=== PATIENT | female | born 1985 | race Caucasian/White ===

== ENCOUNTER 2018-05-25 13:00 | Emergency (ER) | payer MEDICAID ==
[~2018-05-25] VITALS: Wt 69.2 kg
[2018-05-25] MEDS ORDERED: ACET500C5 PO (15:57)
--- NOTE | 2018-05-26 14:59 | ERD ---
ER Documentation Chief Complaint Chief Complaint 9 WEEKS WITH ABDOMINAL PAIN W/ N/V X 2 DAYS HPI 32-year-old female patient with no significant past medical history presents to ED complaining of abdominal pain, nausea, vomiting that started 2 days ago. Patient currently is . Patient is a . Reports that her last menstruation is on March 31, 2018. Denies any vaginal bleeding, vaginal discharge, dysuria, urgency, frequency, chest pain, shortness of breath, cough, rhinorrhea. ROS All systems reviewed and are negative except as per history of present illness. Medications Home Meds Active Scripts Acetaminophen* (Tylophen*) 500 Mg Capsule, 1 CAP PO Q6H PRN for PAIN AND OR ELEVATED TEMP, #20 CAP Prov:JAYDA ANDRADE PA-C 05/25/18 PMhx/Soc Medical and Surgical Hx: pt denies Medical Hx, pt denies Surgical Hx Hx Alcohol Use: No Hx Substance Use: No Hx Tobacco Use: No Physical Exam Vitals Vital Signs Date Temp Pulse Resp B/P (MAP) Pulse Ox O2 O2 Flow FiO2 Time Delivery Rate 05/25/18 97.7 69 18 124/74 99 13:09 (91) Physical Exam Const: Ker-tob-qnbvzptcc, well-nourished. In no acute distress. Head: Atraumatic, normocephalic Eyes: Normal Conjunctiva without injection. No purulent discharge. ENT: Normal external ear, nose. Moist oropharynx without tonsillar exudates. Non-erythematous pharynx. Uvula midline. No drooling. No trismus. Neck: No cervical midline tenderness. Full range of motion. No meningismus. No cervical lymphadenopathy. No JVD. Resp: Clear to auscultation bilaterally. No wheezing, rhonchi, rales, or crackles. No accessory muscle use. No retractions. Cardio: Regular rate and rhythm. No murmurs, rubs or gallops. Abd: Soft, nontender, non distended. Normal bowel sounds. No palpable masses. No rebound tenderness. No guarding. Negative McBurney's point. Negative psoas sign. Negative obturator sign. Skin: No petechiae or rashes Back: No midline tenderness. No CVA tenderness. Ext: No cyanosis, or edema. Neur: Awake and alert. Normal gait. Normal coordination. Psych: Normal Mood and Affect Result Diagram: 3/11/19 1427 05/25/18 1427 Results 24 hrs Laboratory Tests Test 05/25/18 14:27 05/25/18 14:28 White Blood Count 9.3 10^3/ul Red Blood Count 4.43 10^6/ul Hemoglobin 12.7 g/dl Hematocrit 38.9 % Mean Corpuscular Volume 87.8 fl Mean Corpuscular Hemoglobin 28.7 pg Mean Corpuscular Hemoglobin Concent 32.6 g/dl Red Cell Distribution Width 13.0 % Platelet Count 320 10^3/UL Mean Platelet Volume 10.5 fl Immature Granulocytes % 0.300 % Neutrophils % 62.8 % Lymphocytes % 30.1 % Monocytes % 6.0 % Eosinophils % 0.4 % Basophils % 0.4 % Nucleated Red Blood Cells % 0.0 /100WBC Immature Granulocytes # 0.030 10^3/ul Neutrophils # 5.9 10^3/ul Lymphocytes # 2.8 10^3/ul Monocytes # 0.6 10^3/ul Eosinophils # 0.0 10^3/ul Basophils # 0.0 10^3/ul Nucleated Red Blood Cells # 0.0 10^3/ul Sodium Level 141 mmol/L Potassium Level 3.7 mmol/L Chloride Level 106 mmol/L Carbon Dioxide Level 22 mmol/L Anion Gap 13 Blood Urea Nitrogen 6 mg/dl Creatinine 0.46 mg/dl Est Glomerular Filtrat Rate mL/min > 60 mL/min Glucose Level 73 mg/dl Calcium Level 9.9 mg/dl Total Bilirubin 0.4 mg/dl Direct Bilirubin 0.00 mg/dl Indirect Bilirubin 0.4 mg/dl Aspartate Amino Transf (AST/SGOT) 16 IU/L Alanine Aminotransferase (ALT/SGPT) 14 IU/L Alkaline Phosphatase 63 IU/L Total Protein 8.0 g/dl Albumin 4.5 g/dl Globulin 3.50 g/dl Albumin/Globulin Ratio 1.28 Lipase 73 U/L Beta HCG, Quantitative 034970.0 mIU/ml Urine Color STRAW Urine Clarity CLEAR Urine pH 7.0 Urine Specific [place] 1.008 Urine Ketones TRACE mg/dL Urine Nitrite NEGATIVE mg/dL Urine Bilirubin NEGATIVE mg/dL Urine Urobilinogen NEGATIVE mg/dL Urine Leukocyte Esterase NEGATIVE Cleo/ul Urine Hemoglobin NEGATIVE mg/dL Urine Glucose NEGATIVE mg/dL Urine Total Protein NEGATIVE mg/dl Procedures/MDM 32-year-old female patient with no significant past medical history, currently 9 weeks with abdominal pain, nausea and vomiting that started 2 days ago. Patient is afebrile and nontoxic-appearing. An ultrasound, beta-hCG, CBC, type and RH, UA was ordered to evaluate patient. CBC: No evidence of severe infection or anemia CMP: No alkalosis, acidosis, renal disease or liver disease Urine: No elevation in nitrites, leukocyte esterase, hematuria. No evidence of UTI Rh: B positive No indication for Rhogam at this time. beta Hc IMPRESSION: Single live intrauterine with an estimated gestational age of 9 weeks and 6 days, based on ultrasound measurements. EZIO based on ultrasound measurements is 12/22/18. Left ovarian simple cyst. Patient has a left ovarian simple cyst. Patient also has a single IUP 9 weeks, 6 days. Low suspicion for symptomatic anemia, ectopic , sepsis, PID, appendicitis, ovarian torsion, tubo-ovarian abscess, surgical abdomen, or other emergent conditions. Patient was educated that there is a risk for threatened . Patient to follow up with [facility] in 2 days for further evaluation and treatment. Patient is to return sooner to the ED for any worsening symptoms. Patient's questions were answered. Patient understood and agreed with discharge plan. Departure Diagnosis: Primary Impression: Abdominal pain in Trimester: first trimester Qualified Codes: O26.891 - Other specified related conditions, first trimester; R10.9 - Unspecified abdominal pain Condition: Stable Patient Instructions: Vaginal Bleed in , Abdominal Pain, Early Referrals: [facility] () ted se black hecho un examen mdico de control que le indica que no est en molly condicin que requiera tratamiento urgente en el Departamento de Emergencia. Un estudio ms profundo y el tratamiento de min condicin pueden esperar sin ningn riesgo hasta que usted sea atendida/o en el consultorio de min mdico o molly clnica. Es responsabilidad suya arreglar molly grecia para el seguimiento del delfina. MANEJO DE CONDICIONES NO URGENTES EN EL FUTURO 1) Si usted tiene un mdico de atencin primaria: Usted debera llamar a min mdico de atencin primaria antes de venir al departamento de emergencia. Despus de las horas de consultorio, min doctor o min asociado/a est disponible por telfono. El mdico o enfermero de gilma en el servicio telefnico puede asesorarle por rudy medio para atender el problema, o delfina contrario se puede programar molly grecia. 2) Si usted no tiene un mdico de atencin primaria: Llame al mdico o clnica de referencia que aparece abajo dulce las horas de consultorio para hacer molly grecia para que le vean. CLINICAS: [facility] [phone] [facility] [phone] [facility] [phone] [address] [facility] [phone] [facility] [phone] [address] [facility]. [phone] [facility] () Usted se black hecho un examen mdico de control que le indica que no est en molly condicin que requiera tratamiento urgente en el Departamento de Emergencia. Un estudio ms profundo y el tratamiento de min condicin pueden esperar sin ningn riesgo hasta que usted sea atendida/o en el consultorio de min mdico o molly clnica. Es responsabilidad suya arreglar molly grecia para el seguimiento del delfina. MANEJO DE CONDICIONES NO URGENTES EN EL FUTURO 1) Si usted tiene un mdico de atencin primaria: Usted debera llamar a min mdico de atencin primaria antes de venir al departamento de emergencia. Despus de las horas de consultorio, min doctor o min asociado/a est disponible por telfono. El mdico o enfermero de gilma en el servicio telefnico puede asesorarle por rudy medio para atender el problema, o delfina contrario se puede programar molly grecia. 2) Si usted no tiene un mdico de atencin primaria: Llame al mdico o condado institucions de referencia que aparece abajo dulce las horas de consultorio para hacer molly grecia para que le vean. SI USTED NO PUEDE PAGAR PARA MODE UN MEDICO puede ir a: [facility] [address] [place] [address] [facility] [address] [place] [address] [facility] [address] [place] [address] [facility] [address] [place], [place] [phone] [facility] [place] [address] [facility] [address] [place], [place] [phone] OFFICE FAX SANDY KIMBLE [address] [place], [place] [phone] [address] [place] [address] [place], [place] [phone] MAXIMO REDDINGGENESIS [address] [facility], [id number] [address] FRANCINE HERMAN [address] [place], [place] [phone] [facility] [place] [address] [place] [address] [address] [facility] [id number] - [place] [address] [facility] [address] [address] RAMOS, [place] [address] [facility]. [address], [facility] [address] [address] PATTEN, [place] [address] [place] [address] [facility] Hours: 8:00 am - 5:00 pm Additional Instructions: Call your primary care doctor TOMORROW for an appointment during the next 2-3 days.See the doctor sooner or return here if your condition worsens before your appointment time. JAYDA ANDRADE PA-C May 26, 2018 14:59
== END 2018-05-25 16:19 | disposition home or self-care (01) ==
LOC: FTE 13:00
DX: O26.891 Other specified pregnancy related conditions, first trimester (principal); R10.9 Unspecified abdominal pain; Z3A.09 9 weeks gestation of pregnancy
CPT/HCPCS: 36415; 76801; 80053; 81003; 83690; 84702; 85025; 86900; 86901; Z7502